=== PATIENT | male | born 1955 | race Caucasian/White ===

== ENCOUNTER → 2020-03-07 15:19 | Outpatient (CLI) | payer OTHER, SELFPAY ==
--- NOTE | ~2020-03-07 | CT_ITS ---
EXAMINATION: CT lung screening DATE: 03/07/2020 15:35 INDICATION: Personal history of tobacco dependence, current smoker with 30 pack year history TECHNIQUE: Computed tomography (CT) of the chest was performed without intravenous contrast. The dose -length product (DLP) was 92.59 mGy-cm. Automated exposure control and iterative reconstruction techn [employer] were employed. COMPARISON: None FINDINGS: There is severe emphysema. No suspicious pulmonary nodules are identified. The lungs are fr ee of acute opacities. There is no pleural effusion or pneumothorax. No pathologically enlarged thora cic lymph nodes are identified. The heart size is normal. There is calcified coronary artery atherosc lerosis. There is moderate thoracic spondylosis. IMPRESSION: 1. Lung-RADS category 1: Negative. Continue annual screening with noncontrast low-dose chest CT in 12 months. Reviewed, dictated and finalized at location A. TRONIC MAINTENANCE SUPERVISOR IMPRESSION: 1. Lung-RADS category 1: Negative. Continue annual screening with noncontrast l ow-dose chest CT in 12 months.
== END ==
PROVIDERS: PCP Family Medicine; Visit Provider Physician Assistant
DX: Z12.2 Encounter for screening for malignant neoplasm of respiratory organs (principal); Z87.891 Personal history of nicotine dependence
CPT/HCPCS: 71271

== ENCOUNTER → 2021-04-23 15:41 | Outpatient (CLI) | payer OTHER, SELFPAY ==
--- NOTE | ~2021-04-23 | CT_ITS ---
EXAMINATION:CT lung screening DATE: 04/23/2021 15:55 INDICATION: Nicotine dependence, unspecified, uncomplicated. Current smoker with 30 pack year history . TECHNIQUE: Computed tomography (CT) of the chest was performed without intravenous contrast. Automate d exposure control and iterative reconstruction technique were employed. The dose-length product (DLP ) was 86.61 mGy-cm. COMPARISON: Chest CT 03/07/2020 FINDINGS: There is severe emphysema. There is a 4 mm nodule in right upper lobe. There is a 5 mm nodu le in right upper lobe. There is a 3 mm nodule in right lower lobe. There is a calcified pleural plaq ue on the right. There is an 8 mm nodule in left lower lobe. There is a 5 mm nodule in left upper lob e. No pleural effusion. The heart size is normal. There are coronary artery calcifications. No perica rdial effusion. There is 11 x 16 mm right paratracheal lymph node without change. There is mild thora cic spondylosis. IMPRESSION: 1. Lung-RADS category 4B: Very suspicious. Consider PET/CT or CT-guided biopsy of the left lower lobe pulmonary nodule if the patient is not on home oxygen. Reviewed, dictated and finalized at location A. [employer]
== END ==
PROVIDERS: Visit Provider Physician Assistant
DX: Z12.2 Encounter for screening for malignant neoplasm of respiratory organs (principal); F17.210 Nicotine dependence, cigarettes, uncomplicated
CPT/HCPCS: 71271

== ENCOUNTER 2021-05-06 01:47 | Day surgery (SDC) | payer OTHER, SELFPAY ==
[2021-04-23 14:08] VITALS: BMI 23.7
--- NOTE | 2021-05-04 12:33 | WPDANESEPPF ---
Anes - Initial Pre Proc Eval Procedure: Operation Date: 05/06/21 08:00 Proposed Procedures p Colonoscopy - Dominick Jay MD Date/Time: 05/04/21 12:33 Surgeon: Dominick Jay MD Pre Op Diagnosis: positive cologuard Patient Data Age: 66 Gender: M Height: 1.78 m Weight: 75 kg Allergies Allergy/AdvReac Type Severity Reaction Status Date / Time No Known Allergies Verified 05/06/21 06:59 Home Medications Medication Instructions Recorded Confirmed Type aspirin 81 mg tablet,delayed 81 mg PO DAILY 12/27/18 04/23/21 History release cetirizine 10 mg tablet 10 mg PO DAILY 12/27/18 04/23/21 History cholecalciferol (vitamin D3) 25 1,000 unit PO DAILY 12/27/18 04/23/21 History mcg (1,000 unit) capsule naproxen sodium 220 mg tablet 440 mg PO DAILY PRN tablet 12/27/18 02/25/21 History simvastatin 40 mg tablet See Rx Instructions .ROUTE 06/19/20 04/23/21 Rx .COMPLEX #90 tablet lisinopril 10 mg tablet See Rx Instructions .ROUTE 03/11/21 04/23/21 Rx .COMPLEX #90 tablet fluticasone fur. 100 mcg-umeclid See Rx Instructions .ROUTE 04/01/21 04/23/21 Rx 62.5 mcg-vilant 25 mcg .COMPLEX #180 ea inhalat.powder Patient hx anesthesia problems: none Family hx anesthesia problems: none Results Review: All pre-operative results and documents have been reviewed as part of the pre-operative evaluation. [facility] Past Medical History Medical History (Updated 05/04/21 @ 12:33 by Isidoro Woodward DO) Chronic obstructive pulmonary disease, unspecified (~01/16/17) Essential (primary) hypertension History of broken nose Mixed hyperlipidemia Prediabetes Unspecified hearing loss, bilateral Surgical History Surgical History History of appendectomy Family History Family History Father Hypertension Family history of elevated blood lipids Family history of lung cancer, Onset Age: 75 Other No family history of cardiovascular disease Social History Social History (Updated 02/25/21 @ 13:32 by OSCAR Hewitt Smoking packs per day: 1 Smoking cigarettes per day: 20.0 Years smoked: 30 Smoking pack-years: 30.00 Smoking status: Current every day smoker Tobacco type: cigarettes Second hand tobacco smoke exposure: No Alcohol intake: never Substance use: never Substance use type: does not use Living arrangements: with family Spiritual care concerns: No Anes - Eval Final PreProcedure Day of Procedure 05/04/21 12:33 Patient weight: normal Heart: regular rate and rhythm Lungs: clear to auscultation and normal air movement Airway: Mallampati scale class II Neurological: alert and oriented Last oral intake: >/= 8 hours ASA classification: III Emergent: no Anesthetic plan: proceed Anesthesia type and monitoring: general GIVS and standard monitoring Results Review: All pre-operative results and documents have been reviewed as part of the pre-operative evaluation. Informed Consent: The patient's anesthetic plan and its attendant risks and benefits were discussed with the patient/family/POA. Questions were solicited and answers provided to the satisfaction of the patient/family/POA.
[2021-05-06 07:00] VITALS: BP 127/83; PULSE 83; TEMP 36.2; O2SAT 94
[2021-05-06] MEDS: LACTATED RINGERS 1,000 ML 150 ML IV CONT (07:10)
--- NOTE | 2021-05-06 07:51 | WPDGICN ---
Assessment and Plan Assessment and plan (1) Positive colorectal cancer screening using Cologuard test: Code(s): R19.5 - Other fecal abnormalities Status: Acute Assessment and Plan: Patient was found to have positive Cologuard test. For this reason screening colonoscopy will be performed. Further recommendations will be given after endoscopy. GI Consult Note Consult date/time: 05/06/21 07:51 HPI: Tobias Cha is a 66 year old male Presents for screening colonoscopy. Patient was identified as having a positive Cologuard test as an outpatient. patient denies abdominal pain. His bowel habits are regular. Family history noncontributory. Patient has no blood in his stools. Last colonoscopy 11 years ago was unremarkable. Review of Systems Review of Systems: All systems reviewed & are unremarkable except as noted in HPI and below PMFSH Past Medical History Medical History (Updated 05/06/21 @ 07:52 by Dominick Jay MD) Chronic obstructive pulmonary disease, unspecified (~01/16/17) Essential (primary) hypertension History of broken nose Mixed hyperlipidemia Prediabetes Unspecified hearing loss, bilateral Surgical History Surgical History History of appendectomy Family History Family History Father Hypertension Family history of elevated blood lipids Family history of lung cancer, Onset Age: 75 Other No family history of cardiovascular disease Social History Social History (Updated 02/25/21 @ 13:32 by Carmelina Rios [facility]) Smoking packs per day: 1 Smoking cigarettes per day: 20.0 Years smoked: 30 Smoking pack-years: 30.00 Smoking status: Current every day smoker Tobacco type: cigarettes Second hand tobacco smoke exposure: No Alcohol intake: never Substance use: never Substance use type: does not use Living arrangements: with family Spiritual care concerns: No Meds Home Medications and Allergies Home Medications Medication Instructions Recorded Confirmed Type aspirin 81 mg tablet,delayed 81 mg PO DAILY 12/27/18 04/23/21 History release cetirizine 10 mg tablet 10 mg PO DAILY 12/27/18 04/23/21 History cholecalciferol (vitamin D3) 25 1,000 unit PO DAILY 12/27/18 04/23/21 History mcg (1,000 unit) capsule naproxen sodium 220 mg tablet 440 mg PO DAILY PRN tablet 12/27/18 02/25/21 History simvastatin 40 mg tablet See Rx Instructions .ROUTE 06/19/20 04/23/21 Rx .COMPLEX #90 tablet lisinopril 10 mg tablet See Rx Instructions .ROUTE 03/11/21 04/23/21 Rx .COMPLEX #90 tablet fluticasone fur. 100 mcg-umeclid See Rx Instructions .ROUTE 04/01/21 04/23/21 Rx 62.5 mcg-vilant 25 mcg .COMPLEX #180 ea inhalat.powder Allergies Allergy/AdvReac Type Severity Reaction Status Date / Time No Known Allergies Verified 05/06/21 06:59 Vital Signs Vital Signs - 24 hr 05/06/21 07:00 Temperature 97.1 F L Pulse Rate 83 Blood Pressure 127/83 Pulse Oximetry 94 Exam Narrative: Physical exam reveals patient to be alert. Vital signs stable. HEENT exam is unremarkable. Patient is anicteric. Lungs are clear to auscultation and percussion. Heart is without murmur or extra sounds. Abdominal exam bowel sounds are present soft nontender with no organomegaly. Digital external rectal exam is normal.
[2021-05-06 08:12] VITALS: BP 96/64; PULSE 76; RESP 25
[2021-05-06 08:22] VITALS: BP 96/86; PULSE 74; RESP 18; O2SAT 96
[2021-05-06 08:30] VITALS: BP 106/75; PULSE 74; RESP 18; O2SAT 96
== END 2021-05-06 08:51 | disposition home or self-care (01) ==
PROVIDERS: PCP Family Medicine; Visit Provider Internal Medicine Gastroenterology
PROC: 0DJD8ZZ Inspection of Lower Intestinal Tract, Via Natural or Artificial Opening Endoscopic (ICD-10-PCS; CPT 45378; principal; 2021-05-06 08:00)
DX: R19.5 Other fecal abnormalities (principal); K64.8 Other hemorrhoids; K57.30 Diverticulosis of large intestine without perforation or abscess without bleeding; I10 Essential (primary) hypertension; E78.2 Mixed hyperlipidemia; R73.03 Prediabetes; J44.9 Chronic obstructive pulmonary disease, unspecified; F17.210 Nicotine dependence, cigarettes, uncomplicated; Z79.82 Long term (current) use of aspirin; Z79.51 Long term (current) use of inhaled steroids
CPT/HCPCS: 45378; J2704; J7120

== ENCOUNTER 2021-07-04 10:02 | Outpatient (CLI) | payer OTHER, MEDICARE, SELFPAY | END 2021-07-04 10:03 | disposition home or self-care (01) | LOC: ANHLAB 10:06 | PROVIDERS: PCP Family Medicine; Visit Provider Nurse Practitioner Family | DX: J44.9 Chronic obstructive pulmonary disease, unspecified (principal) | CPT/HCPCS: 36415; 82104 ==

== ENCOUNTER → 2021-07-23 15:03 | Outpatient (CLI) | payer MEDICARE, OTHER, SELFPAY ==
--- NOTE | ~2021-07-23 | CT_ITS ---
EXAMINATION: CT diagnostic chest wo con DATE: 07/23/2021 15:21 INDICATION: Follow-up pulmonary nodule. TECHNIQUE: Computed tomography (CT) of the chest was performed without intravenous contrast. The dose -length product was 298.22 mGy-cm. Automated exposure control and iterative reconstruction technique were employed. COMPARISON: Comparison to multiple prior studies sequentially, with oldest reviewed study dated 03/07. FINDINGS: Heart size normal. There are prominent mediastinal lymphadenopathy, likely reactive. For in stance a AP window lymph node measures 12 mm short axis. Mild atherosclerosis of the aorta and hardy ry arteries. No significant pleural or pericardial effusion. There are multiple upper lobe pulmonary nodules measuring 6 mm or less. There is a new 4 mm left upper lobe nodule, image 46. There is a 5.5 mm left upper lobe nodule, decreased in size compared with prior examination. There are multiple smal ler upper lobe nodules measuring 4 mm or less unchanged. No endobronchial lesions. Severe emphysema. Mild thoracic spondylosis. No pneumothorax. There is atherosclerosis of the aorta. No acute osseous a bnormality. No focal lytic or blastic lesions. IMPRESSION: 1. Lung-RADS category 3: Probably benign. Further evaluation is recommended with noncontrast low-dose chest CT in 6 months. Reviewed, dictated and finalized at location B. IMPRESSION: 1. Lung-RADS category 3: Probably benign. Further evaluation is recommended wit h noncontrast low-dose chest CT in 6 months.
== END ==
PROVIDERS: PCP Family Medicine; Visit Provider Nurse Practitioner Family
DX: R91.8 Other nonspecific abnormal finding of lung field (principal)
CPT/HCPCS: 71250

== ENCOUNTER → 2021-09-18 07:27 | Outpatient (CLI) | payer MEDICARE, OTHER, SELFPAY ==
--- NOTE | ~2021-09-18 | XR_ITS ---
XR lumbar spine 2-3V DATE: 09/18/2021 08:19 INDICATION: Low back pain TECHNIQUE: AP, lateral, coned lateral lumbosacral views COMPARISON: None FINDINGS: There is diffuse osteopenia. No fracture or bone destruction of the lumbar spine. No spondylolysis or spondylolisthesis is evident . Moderately prominent degenerative disease at L4-5 and mild degenerative disc disease at the remaining lumbar interspaces. Included lower thoracic and lumbar pedicles are intact. The sacroiliac joints are unremarkable. IMPRESSION: Multilevel mild to moderate degenerative disc disease, most prominent at L4-5 Osteopenia Reviewed, dictated and finalized at location B. IMPRESSION: Multilevel mild to moderate degenerative disc disease, most promine nt at L4-5 Osteopenia
== END ==
PROVIDERS: PCP Family Medicine; Visit Provider Family Medicine
DX: M47.815 Spondylosis without myelopathy or radiculopathy, thoracolumbar region (principal)
CPT/HCPCS: 72100

== ENCOUNTER → 2022-02-03 13:46 | Outpatient (CLI) | payer MEDICARE, OTHER, SELFPAY ==
--- NOTE | ~2022-02-03 | CT_ITS ---
CT Scan of the Chest without Contrast: Clinical Indication: Pulmonary nodules Technique: Contiguous sections were acquired throughout the chest without intravenous contrast. Dose reduction technique was used on this scan by utilizing automated exposure control and iterative recon struction technique. The dose-length product (DLP) was 88.53 mGy-cm. COMPARISON: 07/23/2021 Findings: There is no evidence of any significant mediastinal, hilar or axillary lymphadenopathy. The mediastin al soft tissues appear normal. There is no evidence of pleural or pericardial effusion. Severe emphysema present. Stable 4 mm right upper lobe pulmonary nodule (axial image 46). Stable 5 mm pulmonary nodule in the posterior medial left upper lobe (axial image 34). Stable lingular nodule (a xial image 94). Stable 4 mm left upper lobe pulmonary nodule (axial image 43). Small calcified pleura l plaque noted. Images through the upper abdomen reveal no abnormalities. Impression: Severe emphysema. Stable subcentimeter pulmonary nodules, as detailed above. Reviewed, dictated and finalized at location . AND EXPLOSION INVESTIGATOR Impression: Severe emphysema. Stable subcentimeter pulmonary nodules, as detailed above.
== END ==
PROVIDERS: PCP Family Medicine; Visit Provider Nurse Practitioner Family
DX: R91.8 Other nonspecific abnormal finding of lung field (principal); J43.9 Emphysema, unspecified
CPT/HCPCS: 71250

== ENCOUNTER → 2023-02-04 09:32 | Outpatient (CLI) | payer MEDICARE, OTHER, SELFPAY ==
--- NOTE | ~2023-02-04 | CT_ITS ---
CT Scan of the Chest without Contrast: Clinical Indication: Lung cancer screening, personal history of nicotine dependence Technique: Contiguous sections were acquired throughout the chest without intravenous contrast. Dose reduction technique was used on this scan by utilizing automated exposure control and iterative recon struction technique. The dose-length product (DLP) was 111.41 mGy-cm. COMPARISON: 02/03/2022 Findings: There is no evidence of any significant mediastinal, hilar or axillary lymphadenopathy. The mediastin al soft tissues appear normal. There is no evidence of pleural or pericardial effusion. There is advanced emphysema. 4 mm right lower lobe pulmonary nodule present, not seen on prior exam ( axial image 90). Several additional subcentimeter tiny nodules are present, unchanged. Small calcifie d right lower lobe pleural plaque present. Images through the upper abdomen reveal no abnormalities. Impression: Lung RADS 2: Benign appearance. 12 month follow-up screening CT advised. Advanced emphysema. Reviewed, dictated and finalized at [facility]. AND CAT FOOD COOK Impression: Lung RADS 2: Benign appearance. 12 month follow-up screening CT advised. Advanced emphysema.
== END ==
PROVIDERS: PCP Nurse Practitioner Family; Visit Provider Nurse Practitioner Family
DX: Z12.2 Encounter for screening for malignant neoplasm of respiratory organs (principal); J43.9 Emphysema, unspecified; F17.210 Nicotine dependence, cigarettes, uncomplicated
CPT/HCPCS: 71271

== ENCOUNTER 2023-12-10 14:32 | Emergency (ER) | payer MEDICARE, OTHER, SELFPAY ==
--- NOTE | ~2023-12-10 | XR_ITS ---
EXAMINATION: XR soft tissue neck DATE: 12/10/2023 15:09 INDICATION: Throat pain for 3 weeks TECHNIQUE: AP and lateral views of the soft tissues of the neck were obtained. COMPARISON: None. FINDINGS: Prevertebral soft tissues are unremarkable as is the epiglottis. Nodular soft tissue density in the v entricle the larynx in the region of the aryepiglottic folds without definitive correlate on the AP p rojection. Small wire-like metallic foreign body projecting along the left mandible. No other radiopa que foreign bodies identified. Moderate lower cervical spondylosis. Visualized portions of the upper lungs are clear. IMPRESSION: 1. Indeterminate nodular soft tissue density in the region of the perihepatic folds. Consider laryngo scopy for direct visualization. Reviewed, dictated and finalized at location A. IMPRESSION: 1. Indeterminate nodular soft tissue density in the region of the perihepatic f olds. Consider laryngoscopy for direct visualization.
[2023-12-10 14:48] VITALS: BP 144/89; PULSE 84; RESP 16; TEMP 36.9; O2SAT 93
--- NOTE | 2023-12-10 14:51 | ED.EAR ---
HPI - Ear Problem General Chief complaint: Ear Stated complaint: sorethroat,bilateral ear pain Source: patient Mode of arrival: ambulatory Limitations: no limitations History of Present Illness HPI Narrative: 68 y/o male with hx emphysema presented for c/o throat pain x3 weeks. Pain is mostly to the amena's apple area. Pt is on day 7 of amoxicillin per telehealth visit, without any change or improvement. Endorses pain radiates to both ears and a decreased appetite. Admits to choking on mucous at times, and some food is difficult to swallow. Smokes 1ppd. MD Complaint: ear pain Related Data Home Medications Medication Instructions Recorded Confirmed aspirin 81 mg tablet,delayed 81 mg PO DAILY 12/27/18 12/10/23 release cetirizine 10 mg tablet (Zyrtec) 10 mg PO DAILY 12/27/18 12/10/23 cholecalciferol (vitamin D3) 25 1,000 unit PO DAILY 12/27/18 12/10/23 mcg (1,000 unit) capsule amoxicillin 500 mg capsule 500 mg PO BID 12/10/23 12/10/23 Allergies Allergy/AdvReac Type Severity Reaction Status Date / Time No Known Drug Allergies Allergy Unknown None Verified 12/10/23 14:48 Review of Systems Review of Systems: CONSTITUTIONAL: Denies malaise, chills, or fever. EYES: Denies visual changes, redness, or discharge. ENT: Denies rhinorrhea, congestion, sinus pain, and sore throat. Reports throat pain, ear pain CARDIOVASCULAR: Denies chest pain, palpitations, or edema. RESPIRATORY: Denies cough or dyspnea. GASTROINTESTINAL: Denies abdominal pain, nausea, vomiting, diarrhea SKIN: Denies rash or itching. MUSCULOSKELETAL: Denies myalgia. NEUROLOGIC: Denies headache. All systems reviewed & are unremarkable except as noted in HPI and below PMFSH Past Medical History Medical History Chronic obstructive pulmonary disease, unspecified (~01/16/17) Essential (primary) hypertension History of broken nose Mixed hyperlipidemia Prediabetes Unspecified hearing loss, bilateral Surgical History Surgical History H/O removal of cyst H/O rhinoplasty History of appendectomy History of surgery on arm Family History Family History Father Hypertension Family history of elevated blood lipids Family history of lung cancer, Onset Age: 75 Other No family history of cardiovascular disease Social History Social History Social History: Caffeine-couple soda's a day. Smoking packs per day: 0.75 Smoking cigarettes per day: 15.0 Years smoked: 30 Smoking pack-years: 22.50 Smoking status: Current every day smoker Tobacco type: cigarettes Second hand tobacco smoke exposure: No Additional smoking assessment comments: pt smokes 15 a day Alcohol intake: never Substance use: never Substance use type: does not use Do You Feel Safe in your Home?: Yes Lack of Transportation: No Lack of Food: Never True Current Housing: I Have Housing Concerned About Future Housing: No Difficulty Paying Gas/Electric Bills: No Difficulty Paying for Meds: No Currently Unemployed: No Education: Trade/Vocational Certificate Difficulty w/ Childcare or Family Care: No Living arrangements: with family Occupation/Education: retired Gender identity (if verbalized by the patient): Male Spiritual care concerns: No Comments At time of signature, agree with nursing past medical, surgical, social and family history. There is no relevant family history pertinent to the presenting complaint Exam Narrative: GENERAL: Well-appearing EYES: conjunctivae clear ENT: Nares clear. Mucous membranes moist. TM pearly freed with dull light reflex bilaterally; no tragal tenderness. Hearing aides bilateral. Oropharynx erythematous without lesions. Tonsils not enlarged and without exudate, no drooling, no hoarseness, no trismus, uvula midline. NECK: Supple. No lymphadenopathy. Tender with mild swelling to bilateral aspects of thyroid area. CHEST: Clear to auscultation, breath sounds equal. No wheezing, rhonchi, rales, or stridor. No respiratory distress, speaks in full sentences. HEART: Regular rate and rhythm. No murmur heard. SKIN: Warm, dry NEURO: Alert and oriented x3. PSYCH: Normal mood and affect Course Course Emergency Course: Patient is aware of diagnosis, understands and agrees to treatment plan. Anticipatory guidance given. Patient agrees to follow-up as directed and is aware of reasons to seek care at the emergency department. Portions of this record may have been created with voice recognition software Level of Care: Express Care Visit Vital Signs Vital signs: Vital Signs Temperature 98.4 F 12/10/23 14:48 Pulse Rate 84 12/10/23 14:48 Respiratory Rate 16 12/10/23 14:48 Blood Pressure 144/89 H 12/10/23 14:48 Pulse Oximetry 93 12/10/23 14:48 Oxygen Delivery Room Air 12/10/23 14:48 Temperature 98.4 F 12/10/23 14:48 Pulse Rate 84 12/10/23 14:48 Respiratory Rate 16 12/10/23 14:48 Blood Pressure 144/89 H 12/10/23 14:48 Pulse Oximetry 93 12/10/23 14:48 Oxygen Delivery Room Air 12/10/23 14:48 Reviewed Medical Decision Making MDM Narrative Medical decision making narrative: O2 sat 93% c/w previous visits. Discussed physical exam findings and x-ray results. Advised f/u with DR Cortez tomorrow. Pt states since I am a smoker it is in my best interest to get it evaluated. Rx steroid. Advised supportive measures and signs/symptoms to go to the ER. Patient is appropriate for outpatient treatment and follow-up. Differential Diagnosis Differential Diagnosis: Coronavirus, strep pharyngitis, allergic rhinitis, upper respiratory tract infection, sinusitis, rhinosinusitis, nasopharyngitis, viral pharyngitis, otitis media, otitis externa, eustachian tube dysfunction, foreign body, cerumen impaction. Vital Signs Vital Signs: Vital Signs Temperature 98.4 F 12/10/23 14:48 Pulse Rate 84 12/10/23 14:48 Respiratory Rate 16 12/10/23 14:48 Blood Pressure 144/89 H 12/10/23 14:48 Pulse Oximetry 93 12/10/23 14:48 Oxygen Delivery Room Air 12/10/23 14:48 Temperature 98.4 F 12/10/23 14:48 Pulse Rate 84 12/10/23 14:48 Respiratory Rate 16 12/10/23 14:48 Blood Pressure 144/89 H 12/10/23 14:48 Pulse Oximetry 93 12/10/23 14:48 Oxygen Delivery Room Air 12/10/23 14:48 Imaging Data Radiologist's impression: Patient: Tobias Cha : 1955 MR#: [id number] Age: 68 Acct:[id number] Loc: [id number] ADM Date: 12/10/23Attending Dr: Ordering Physician: Connie Rodriguez APRN Date of Service: 12/10/23 Procedure(s): XR soft tissue neck Accession Number(s): [id number] cc: Connie Rodriguez APRN; Steve Guajardo DO~ EXAMINATION: XR soft tissue neck DATE: 12/10/2023 15:09 INDICATION: Throat pain for 3 weeks TECHNIQUE: AP and lateral views of the soft tissues of the neck were obtained. COMPARISON: None. FINDINGS: Prevertebral soft tissues are unremarkable as is the epiglottis. Nodular soft tissue density in the ventricle the larynx in the region of the aryepiglottic folds without definitive correlate on the AP projection. Small wire-like metallic foreign body projecting along the left mandible. No other radiopaque foreign bodies identified. Moderate lower cervical spondylosis. Visualized portions of the upper lungs are clear. IMPRESSION: 1. Indeterminate nodular soft tissue density in the region of the perihepatic [aryepiglottic] folds. Consider laryngoscopy for direct visualization. Discharge Plan Discharge Clinical Impression: Laryngeal nodule Patient Disposition: Home, Self-Care Condition: Stable Instructions: How to Stop Smoking (ED) Additional Instructions: Take medication as directed Tylenol every 8 hours as needed for pain/fever Soft foods, cool liquids, warm tea. Gargle with warm saltwater twice a day. Chloraseptic spray and throat lozenges. Rest and stay hydrated. Further evaluation is necessary based on the Xray results and your symptoms. Follow up with electronic health records specialist call 12/10 to schedule an appointment. Follow up with your pcp as well. Go to the ER for worsening symptoms or concerns; if you cannot swallow your saliva, trouble breathing/wheezing, throat swelling, pain is persistent and severe etc Prescriptions: New prednisone 50 mg tablet 50 mg PO DAILY Qty: 5 0RF No Action amoxicillin 500 mg capsule 500 mg PO BID aspirin 81 mg tablet,delayed release (DR/EC) 81 mg PO DAILY cholecalciferol (vitamin D3) 1,000 unit capsule 1,000 unit PO DAILY cetirizine [Zyrtec] 10 mg tablet 10 mg PO DAILY simvastatin 40 mg tablet See Rx Instructions .ROUTE .COMPLEX Qty: 90 1RF Dose Instruction: TAKE 40 MG BY MOUTH AT BEDTIME Rx Instructions: TAKE 40 MG BY MOUTH AT BEDTIME Trealan Ellipta 100-62.5-25 mcg blister with device See Rx Instructions .ROUTE .COMPLEX 90 Days Qty: 180 3RF Hold Instructions: Hold while trialing Breztri Dose Instruction: INHALE 1 PUFF BY MOUTH ONCE DAILY Rx Instructions: INHALE 1 PUFF BY MOUTH ONCE DAILY. RINSE AND SPIT. icosapent ethyl 1 gram capsule 2 g PO BID Qty: 120 1RF fenofibrate 160 mg tablet 160 mg PO DAILY Qty: 90 0RF meloxicam 7.5 mg tablet 7.5 mg PO BID Qty: 60 3RF lisinopril 10 mg tablet See Rx Instructions .ROUTE .COMPLEX Qty: 90 1RF Dose Instruction: TAKE 1 TABLET BY MOUTH DAILY Rx Instructions: TAKE 1 TABLET BY MOUTH DAILY Follow-up/Referrals: Dharmesh Cortez MD [Physician] - (Indeterminate nodular soft tissue density in the region of the aryepiglottic folds. Consider laryngoscopy for direct visualization.) Steve Guajardo DO [Primary Care Provider] - Time of Disposition: 15:41
== END 2023-12-10 15:43 | disposition home or self-care (01) ==
PROVIDERS: Emergency Provider Nurse Practitioner Family; PCP Family Medicine
DX: J38.7 Other diseases of larynx (principal); F17.210 Nicotine dependence, cigarettes, uncomplicated; J44.9 Chronic obstructive pulmonary disease, unspecified; I10 Essential (primary) hypertension; E78.2 Mixed hyperlipidemia; R73.03 Prediabetes; Z79.82 Long term (current) use of aspirin
CPT/HCPCS: 70360; 99213; G0463

== ENCOUNTER 2023-12-26 07:40 | Outpatient (CLI) | payer MEDICARE, OTHER, SELFPAY ==
--- NOTE | 2023-12-26 07:53 | ECG_ITS ---
Test Date: 2023-12-26 08:03:15 Measurements Intervals [place] Rate: 76 P: 77 DC: 131 QRS: -47 QRSD: 109 T: 66 QT: 370 QTc: 416 Interpretive Statements SINUS RHYTHM LEFT ANTERIOR FASCICULAR BLOCK BASELINE ARTIFACT- I, II ABNORMAL ECG No previous ECG available for comparison Electronically Signed On 12-26-2023 11:46:52 HOU[employer] PIPING INSPECTOR by Armando Berry D.O.
[2023-12-26 08:11] LABS: Anion Gap 6 mmol/L (4-12); Blood Urea Nitrogen 17 mg/dL (9-20); Calcium 9.1 mg/dL (8.4-10.2); Carbon Dioxide 33 mmol/L (22-30); Chloride 102 mmol/L (98-107); Estimated Glomerular Filt Rate 60; Glucose 106 mg/dL (65-110); Potassium 4.3 mmol/L (3.4-5.0); Sodium 141 mmol/L (137-145)
== END 2023-12-26 07:41 | disposition home or self-care (01) ==
PROVIDERS: PCP Family Medicine; Visit Provider Nurse Anesthetist, Certified Registered
DX: Z01.818 Encounter for other preprocedural examination (principal); R94.31 Abnormal electrocardiogram [ECG] [EKG]
CPT/HCPCS: 36415; 80048; 93005

== ENCOUNTER 2023-12-30 14:07 | Outpatient (CLI) | payer MEDICARE, OTHER, SELFPAY ==
--- NOTE | ~2023-12-30 | CT_ITS ---
EXAMINATION: CT soft tissue neck w con DATE: 12/30/2023 14:39 INDICATION: Chronic pharyngitis. TECHNIQUE: Computed tomography (CT) of the neck was performed with 75 mL Omnipaque-350 intravenous co ntrast. Automated exposure control and iterative reconstruction technique were employed. The dose-zahida gth product was 457.03 mGy-cm. COMPARISON: Neck radiographs 12/10/2023 FINDINGS: There is moderate emphysema. There is mucosal thickening of the epiglottis and false focal cords. There are no pathologically enlarged lymph nodes. There is 0% stenosis of the proximal interna l carotid arteries relative to normal distal artery lumen diameters. There is severe cervical spondyl osis. IMPRESSION: 1. Mucosal thickening of the glottis and false vocal cords, which may be inflammation. Malignancy is not excluded. Reviewed, dictated and finalized at location A. ETARIAL STENOGRAPHER IMPRESSION: 1. Mucosal thickening of the glottis and false vocal cords, which may be inflam mation. Malignancy is not excluded.
[2023-12-30 14:27] LABS: Estimated Glomerular Filt Rate > 60
== END 2023-12-30 14:08 | disposition home or self-care (01) ==
PROVIDERS: PCP Family Medicine; Visit Provider Otolaryngology
DX: J31.2 Chronic pharyngitis (principal)
CPT/HCPCS: 70491; Q9967

== ENCOUNTER 2024-02-08 15:38 | Outpatient (CLI) | payer MEDICARE, OTHER, SELFPAY ==
--- NOTE | ~2024-02-08 | CT_ITS ---
EXAMINATION:CT lung screening DATE: 02/08/2024 15:52 INDICATION: Personal history of nicotine dependence. Current smoker with 30 pack year history. TECHNIQUE: Computed tomography (CT) of the chest was performed without intravenous contrast. Automate d exposure control and iterative reconstruction technique were employed. The dose-length product (DLP ) was 105.01 mGy-cm. COMPARISON: Chest CT 02/04/2023 FINDINGS: There is severe emphysema. There are calcified pleural plaques on the right. There is a 2.6 cm nodule in left lung lower lobe, consistent with primary bronchogenic carcinoma. There are mild pe ripheral airspace opacities in left lower lobe, which may be atelectasis or pneumonia. There is a 9 m m part solid nodule in left lower lobe. There is left hilar and mediastinal lymphadenopathy, consiste nt with metastatic disease. For example, a left hilar node measures 1.8 x 1.8 cm. There are ill-defin ed hypodense masses in the liver measuring up to 5.9 cm, consistent with metastatic disease. There is mild thoracic spondylosis. There is an old healed right rib fracture. IMPRESSION: 1. Lung-RADS 4B: Very suspicious. Abdomen CT with contrast is recommended given that the liver masses are very subtle. If liver masses are confirmed, ultrasound-guided core needle biopsy of a liver mass is recommended for diagnosis. Reviewed, dictated and finalized at location A. ING ASSOCIATE IMPRESSION: 1. Lung-RADS 4B: Very suspicious. Abdomen CT with contrast is recommended given that the liver masses are very subtle. If liver masses are confirmed, ultrasou nd-guided core needle biopsy of a liver mass is recommended for diagnosis.
== END 2024-02-08 15:39 | disposition home or self-care (01) ==
LOC: MICIMG 15:38
PROVIDERS: Visit Provider Physician Assistant
DX: Z12.2 Encounter for screening for malignant neoplasm of respiratory organs (principal); Z87.891 Personal history of nicotine dependence; R16.0 Hepatomegaly, not elsewhere classified
CPT/HCPCS: 71271